=== PATIENT | female | born 1995 | race African-American/Black ===

== ENCOUNTER 2023-01-31 16:19 | Emergency (ER) | payer OTHER ==
[2023-01-31 17:35] LABS: Absolute Lymphocytes (CBC) 1.8 K/uL (0.7-4.9); Lymphocytes % 33.2 % (15.3-44.8); MCV 91.7 fL (80-100); MPV 8.1 fL (7.6-11.3); Platelets 239 thou/uL (152-406); RBC Red Blood Cell Count 4.48 M/uL (3.86-4.86)
[2023-01-31 17:37] LABS: Specific Gravity 1.025 (1.005-1.030)
[2023-01-31] MEDS ORDERED: LORazepam 2 MG/ML VIAL ONE (17:38)
[2023-01-31 17:41] LABS: Protime INR 1.06
[2023-01-31 17:45] LABS: Specific Gravity 1.025 (1.005-1.030); Urine Bacteria <20 /HPF (<20); Urine Bilirubin NEGATIVE (Negative); Urine Blood Negative (Negative); Urine Clarity Turbid (Clear); Urine Color Light-Yellow (Yellow); Urine Glucose NEGATIVE (Negative); Urine Mucus 1+ /HPF (None Seen); Urine Protein TRACE (Negative); Urine Urobilinogen Normal (Normal); Urine pH 6.5 (5.0-7.0)
[2023-01-31 17:48] LABS: Barbiturates NEGATIVE (NEGATIVE); Benzodiazepines NEGATIVE (NEGATIVE); Cocaine NEGATIVE (NEGATIVE); METHAMPHETAM NEGATIVE (NEGATIVE); Methadone ND (NEGATIVE); Opiates NEGATIVE (NEGATIVE); Phencyclidine NEGATIVE (NEGATIVE); THC Cannibis POSITIVE (NEGATIVE)
[2023-01-31 18:21] LABS: ALT/SGPT 18 U/L (13-56); AST/SGOT 16 U/L (15-37); Albumin 4.4 g/dL (3.4-5.0); Alkaline Phosphatase 62 U/L (45-117); BUN Blood Urea Nitrogen 10 mg/dL (7-18); Bicarbonate 26 mEq/L (21-32); Bilirubin Direct 0.1 mg/dL (0-0.2); Bilirubin Indirect, Calculated 0.3 mg/dL (0.2-0.8); Bilirubin Total 0.4 mg/dL (0.2-1.0); Glomerular Filtration Rate 82 ml/min (=/>90); Glucose Level 100 mg/dL (74-106); Potassium 3.6 mEq/L (3.5-5.1); Sodium Level 136 mEq/L (136-145)
--- NOTE | 2023-01-31 18:46 | ER ---
Nurse's Notes [facility] Name: Mirta Bravo Age: 27 yrs Sex: Female : 1995 Arrival Date: 01/31/2023 Time: 16:19 Bed 20 Private MD: Diagnosis: Suicidal ideations Presentation: 01/31 16:41 Chief complaint: PATIENT CAME WITH POLICE. CALLED SUICIDE HOTLINE AND STATED THAT db SHE WANTED TO EITHER OVERDOSE OR THROW HERSELF INTO TRAFFIC. PT STATES HAS HAD THOUGHTS OF HURTING SELF FOR A COUPLE OF WEEKS. STATES HAS HORRIBLE NIGHTMARES NIGHTLY. DENIES HALLUCINATIONS OR HEARING VOICES. Coronavirus screen: Vaccine status: Patient reports receiving the 2nd dose of the covid vaccine. Client denies travel out of the [place] in the last 14 days. At this time, the client does not indicate any symptoms associated with coronavirus-19. Ebola Screen: Patient negative for fever greater than or equal to 101.5 degrees Fahrenheit, and additional compatible Ebola Virus Disease symptoms Patient denies exposure to infectious person. Patient denies travel to an Ebola-affected area in the 21 days before illness onset. No symptoms or risks identified at this time. Initial Sepsis Screen: Does the patient meet any 2 criteria? No. Patient's initial sepsis screen is negative. Does the patient have a suspected source of infection? No. Patient's initial sepsis screen is negative. Risk Assessment: Do you want to hurt yourself or someone else? Patient reports desire/thoughts of hurting themselves or someone else. Provider notified. Onset of symptoms was January 31, 2023. 16:41 Method Of Arrival: Law Enforcement: [place] [employer] db 16:41 Acuity: MARGARITA 2 db Triage Assessment: 16:57 General: Appears in no apparent distress. comfortable, Behavior is. Pain: Denies pain. db Neuro: Level of Consciousness is awake, alert, obeys commands, Oriented to person, place, time, situation. Historical: - Allergies: 16:57 No Known Allergies; db - Home Meds: 16:57 Wellbutrin XL 300 mg Oral Tablet, Extended Release 24 hr [Active]; Bupropion 60 Oral db [Active]; Seroquel 60 MG Oral [Active]; - PMHx: 18:53 Depressive disorder; db - Social history:: Smoking status: Reported history of juuling and/or vaping. Patient uses. Screenin:00 [facility] ED Fall Risk Assessment (Adult) History of falling in the last 3 months, db including since admission No falls in past 3 months (0 pts) Score/Fall Risk Level 0 - 2 = Low Risk Oriented to surroundings, Maintained a safe environment. Abuse screen: Denies threats or abuse. Denies injuries from another. Nutritional screening: No deficits noted. Tuberculosis screening: No symptoms or risk factors identified. Assessment: 17:28 Reassessment: PATIENT BEGAN YELLING AND BANGING HER HEAD AGAINST THE STRETCHER. CODE kristen SHARMILA CALLED. 17:31 Reassessment: No changes from previously documented assessment. Patient and/or family ll1 updated on plan of care and expected duration. Pain level reassessed. 18:51 Reassessment: REPORT GIVEN TO WAQAS AT [facility]. [facility]. db 19:14 General: Appears in no apparent distress. Behavior is flat, quiet. Neuro: No deficits kl noted. Cardiovascular: No deficits noted. Respiratory: Airway is patent Trachea midline Respiratory effort is even, unlabored, Respiratory pattern is regular, symmetrical. GI: No deficits noted. No signs and/or symptoms were reported involving the gastrointestinal system. : No deficits noted. No signs and/or symptoms were reported regarding the genitourinary system. Psych: 16:20 [place] Suicide Severity Screening: In the past month, have you wished you were db or wished you could go to sleep and not wake up? Patient responds "yes." "In the past month, have you actually had any thoughts of killing yourself?" Patient responds "yes." "In your lifetime, have you ever done anything, started to do anything, or prepared to do anything to end your life?" Patient responds "yes." Patient reports suicidal intent within 3 past months. Subjective: Patient's mood is sad, hopeless, Delusions are denied, Hallucinations are denied Having thoughts of suicide. Plan for suicide is PLAN TO OVERDOSE OR THROW SELF INTO TRAFFIC. Objective: Patient is cooperative, Speech is normal, Affect is flat. Interventions: Removed personal items and placed in bag. Patient placed in hospital gown. Searched person for dangerous items. Belonging list filled out. Patient reassessed during use of restraints. Patient is physically safe. Safety Checks: Personal items have been removed. Door is open. No visitors are present at this time. [place] [employer] AT PATIENT BEDSIDE. Patient uses tobacco Frequency daily. Pt denies substance abuse. Commitment: Patient will be an involuntary commitment. Commitment papers completed. Vital Signs: 16:41 BP 127 / 86; Pulse 71; Resp 16; Temp 98; Pulse Ox 100% on R/A; Weight 53.52 kg; Height db 5 ft. 4 in. ; 19:15 BP 115 / 67; Pulse 81; Resp 18; Temp 98.5(O); Pulse Ox 99% ; kl 16:41 Body Mass Index 20.25 (53.52 kg, 162.56 cm) db ED Course: 16:20 Patient arrived in ED. ll1 16:21 Octaviano Maciel PA is PHCP. cp 16:21 Octaviano Patel MD is Attending Physician. cp 16:30 Arm band placed on Patient placed in an exam room, on a stretcher. ll1 16:41 Shandra Silva, RN is Primary Nurse. db 16:56 Triage completed. db 17:31 Acetaminophen Sent. bc6 17:31 Basic Metabolic Panel Sent. bc6 17:31 CBC with Diff Sent. bc6 17:31 ETOH Level Sent. bc6 17:31 Hepatic Function Sent. bc6 17:31 PT-INR Sent. bc6 17:31 Test, Urine Sent. bc6 17:31 Ptt, Activated Sent. bc6 17:31 Salicylate Sent. bc6 17:31 Urinalysis w/ reflexes Sent. bc6 17:31 Urine Drug Screen Sent. bc6 17:31 Inserted saline lock: 20 gauge in left antecubital area, using aseptic technique. Blood bc6 collected. 18:35 faxed chart to [facility]. bd 19:[address] Collazo to [facility]. rv1 19:56 No apparent distress. Resting quietly. kl 19:57 Patient has correct armband on for positive identification. Bed in low position. sitter kl in attendance. Provided Education on: PING. 19:57 No provider procedures requiring assistance completed. IV discontinued, intact, kl bleeding controlled, No redness/swelling at site. Pressure dressing applied. Administered Medications: 17:28 Drug: Ativan IVP 1 mg IVP once Route: IVP; Site: left forearm; ll1 19:17 Follow up: Response: No adverse reaction db Medication: 19:57 VIS not applicable for this client. Outcome: 18:46 ER care complete, transfer ordered by . cp 19:56 Transferred by ground EMS Note: [facility] 19:56 Condition: stable 19:56 Discharge instructions given to patient, Instructed on the need for transfer, Demonstrated understanding of instructions, 20:15 Patient left the ED. Signatures: Jasmin Ochoa Kimberly RN RN Octaviano Sprague PA PA cp Lewis, Lynsay RN RN ll1 Shandra Silva RN RN db Becky Ferro rv1 Antonietta Hoskins bc6 Corrections: (The following items were deleted from the chart) 16:57 16:41 Chief complaint: PATIENT CAME WITH POLICE. CALLED SUICIDE HOTLINE AND STATED db THAT SHE WANTED TO EITHER OVERDOSE OR THROW HERSELF INTO TRAFFIC. db 18:55 18:51 Reassessment: REPORT GIVEN TO WAQAS AT [facility]. db db
--- NOTE | 2023-01-31 18:46 | EDPHYS ---
Physician Documentation [facility] Name: Mirta Braov Age: 27 yrs Sex: Female : 1995 Arrival Date: 01/31/2023 Time: 16:19 Bed 20 Private MD: ED Physician Octaviano Patel HPI: 01/31 17:05 This 27 yrs old Black Female presents to ER via Law Enforcement with complaints of cp Suicidal Ideation. 17:05 The patient presents to the emergency department with depression, suicide ideation, and cp the patient has a plan, to overdose with medications. 17:05 Onset: The symptoms/episode began/occurred for past "couple weeks". cp 17:05 Associated signs and symptoms: Pertinent negatives: abdominal pain, chest pain, cp delusions, fever, hallucinations, homicidal ideation. Patient reports she has been off prescribed psych medications for about 1 month. Patient detained by law enforcement with PING. Historical: - Allergies: 16:57 No Known Allergies; db - Home Meds: 16:57 Wellbutrin XL 300 mg Oral Tablet, Extended Release 24 hr [Active]; Bupropion 60 Oral db [Active]; Seroquel 60 MG Oral [Active]; - PMHx: 18:53 Depressive disorder; db - Social history:: Smoking status: Reported history of juuling and/or vaping. Patient uses. ROS: 17:10 Constitutional: Negative for body aches, chills, fever, poor PO intake, cp 17:10 Eyes: Negative for injury, pain, redness, and discharge, cp 17:10 Cardiovascular: Negative for chest pain, palpitations, 17:10 Respiratory: Negative for cough, shortness of breath, wheezing, 17:10 Abdomen/GI: Negative for abdominal pain, vomiting, diarrhea, constipation, 17:10 Neuro: Negative for altered mental status, dizziness, headache, numbness, syncope, weakness, 17:10 Psych: Positive for depression, suicidal ideation, Negative for auditory hallucinations, visual hallucinations, homicidal ideation, 17:10 All other systems are negative, Exam: 17:15 Constitutional: The patient appears in no acute distress, alert, awake, non-toxic, well cp developed, well nourished, 17:15 Head/Face: Normocephalic, atraumatic. cp 17:15 Eyes: Periorbital structures: appear normal, Conjunctiva: normal, no exudate, no injection, Sclera: no appreciated abnormality, Lids and lashes: appear normal, bilaterally, 17:15 ENT: External ear(s): are unremarkable, Nose: is normal, Mouth: Lips: moist, Oral mucosa: pink and intact, moist, Posterior pharynx: Airway: no evidence of obstruction, patent, 17:15 Chest/axilla: Inspection: normal, 17:15 Cardiovascular: Rate: normal, Rhythm: regular, 17:15 Respiratory: the patient does not display signs of respiratory distress, Respirations: normal, no use of accessory muscles, no retractions, labored breathing, is not present, Breath sounds: are clear throughout, no decreased breath sounds, no stridor, no wheezing, 17:15 Abdomen/GI: Inspection: abdomen appears normal, 17:15 Neuro: Orientation: to person, place \\T\\ time. Mentation: is normal, Motor: moves all fours, strength is normal, Sensation: is normal, Gait: is steady, at a normal pace, without difficulty, Vital Signs: 16:41 BP 127 / 86; Pulse 71; Resp 16; Temp 98; Pulse Ox 100% on R/A; Weight 53.52 kg; Height db 5 ft. 4 in. ; 19:15 BP 115 / 67; Pulse 81; Resp 18; Temp 98.5(O); Pulse Ox 99% ; kl 16:41 Body Mass Index 20.25 (53.52 kg, 162.56 cm) db MDM: 16:21 Patient medically screened. cp 18:35 Data reviewed: vital signs, nurses notes, lab test result(s). cp 18:35 Differential diagnosis: drug withdrawal. acute psychotic break, depression, psychosis cp secondary to non-compliance. I considered the following discharge prescriptions or medication management in the emergency department Medications were administered in the Emergency Department. See MAR. Counseling: I had a detailed discussion with the patient and/or guardian regarding the historical points, exam findings, and any diagnostic results supporting the discharge/admit diagnosis, lab results, the need to transfer to another facility, [facility] does not immediately have the required specialist. 01/31 17:01 Order name: Acetaminophen; Complete Time: 18:24 cp 01/31 18:24 Interpretation: Reviewed. 01/31 17:01 Order name: Basic Metabolic Panel; Complete Time: 18:24 cp 01/31 18:24 Interpretation: Normal except: GFR 82. cp 01/31 17:01 Order name: CBC with Diff; Complete Time: 18:24 cp 01/31 17:01 Order name: ETOH Level; Complete Time: 18:24 cp 01/31 18:25 Interpretation: Reviewed. cp 01/31 17:01 Order name: Hepatic Function; Complete Time: 18:24 cp 01/31 18:25 Interpretation: Normal except: TP 9.0; GLOB 4.6; A/G 1.0. cp 01/31 17: Order name: PT-INR; Complete Time: 18:24 cp 01/31 17:01 Order name: Test, Urine; Complete Time: 18:24 cp 01/31 17: Order name: Ptt, Activated; Complete Time: 18:24 cp 01/31 17:01 Order name: Salicylate; Complete Time: 18:24 cp 01/31 17:01 Order name: Urinalysis w/ reflexes; Complete Time: 18:24 cp 01/31 18:25 Interpretation: Normal except: UCLA Turbid; UPROT TRACE; URBC 5-10. cp 01/31 17:01 Order name: Urine Drug Screen; Complete Time: 18:24 cp 01/31 18:25 Interpretation: Normal except: THC POSITIVE. cp 01/31 17:01 Order name: IV Saline Lock; Complete Time: 17:31 cp 01/31 17:01 Order name: Labs collected and sent; Complete Time: 17:31 cp 01/31 17:01 Order name: Suicide Precautions; Complete Time: 17:31 cp 01/31 17:01 Order name: Suicide Screening ([place]); Complete Time: 17:31 cp Administered Medications: 17:28 Drug: Ativan IVP 1 mg IVP once Route: IVP; Site: left forearm; ll1 19:17 Follow up: Response: No adverse reaction db Disposition Summary: 01/31/23 18:46 Transfer Ordered Notes: Transfer Location: [facility] Facility cp Reason: Higher level of care cp Condition: Stable cp Problem: new cp Symptoms: have improved cp Accepting Physician: Doctor(01/31/23 20:15) kl Diagnosis - Suicidal ideations cp Forms: - Medication Reconciliation Form cp - SBAR form cp Signatures: Dispatcher [employer] Ninoska Salinas RN RN Octaviano Sprague PA PA cp Lewis, Lynsay, RN RN ll1 Shandra Silva RN RN db Corrections: (The following items were deleted from the chart) 20:00 18:46 Doctor kristie duarte 20:15 20:00 Doctor gerald duarte 02/01 00:23 10 17:05 Patient reports she has been off prescribed psych medications for about 1 cp month. cp
[2023-01-31 21:01] VITALS: BP 127/86; TEMP 98; O2SAT 100
== END 2023-01-31 20:15 ==
LOC: ER 16:19
DX: R45.851 Suicidal ideations (principal); F17.290 Nicotine dependence, other tobacco product, uncomplicated; F32.A Depression, unspecified
CPT/HCPCS: 36415; 80048; 80076; 80143; 80179; 80307; 81001; 81025; 82077; 85025; 85610; 85730; 96374; 99285

== ENCOUNTER → 2023-07-01 | Emergency (ER) | payer OTHER, SELFPAY ==
[~2023-07-01] MED LIST: LORazepam 2 MG/ML VIAL ONE
[2023-07-01 02:33] LABS: Absolute Eosinophils 0.2 K/uL (0-0.5); Absolute Lymphocytes (CBC) 1.6 K/uL (0.7-4.9); Absolute Monocytes 0.5 K/uL (0.1-1.3); Absolute Neutrophil 3.8 K/uL (1.8-8.0); Basophils % 0.8 % (0-1.3); Eosinophils % 2.9 % (0-4.4); Hematocrit 36.7 % (36.0-45.0); Hemoglobin 12.2 g/dL (12.0-15.0); Lymphocytes % 26.4 % (15.3-44.8); MCH 31.2 pg (27.0-35.0); MCHC 33.3 g/dL (32.0-36.0); MCV 93.5 fL (80-100); MPV 8.5 fL (7.6-11.3); Monocytes % 8.3 % (3.3-12.3); Neutrophils % 61.6 % (41.7-73.7); Platelets 234 thou/uL (152-406); RBC Red Blood Cell Count 3.93 M/uL (3.86-4.86); Red Cell Distribution Width 12.5 % (12.1-15.2)
--- NOTE | 2023-07-01 02:36 | EDPHYS ---
Physician Documentation [facility] Name: Mirta Bravo Age: 27 yrs Sex: Female : 1995 Arrival Date: 07/01/2023 Time: 01:51 Bed 17 Private MD: ED Physician Cooper Flaherty HPI: 06/30 02:11 This 27 yrs old Black Female presents to ER via Unassigned with complaints of suicidal rn ideations. 02:11 The patient presents to the emergency department with depression, suicide ideation. rn Onset: The symptoms/episode began/occurred at an unknown time. Associated signs and symptoms: Pertinent positives; suicide ideation, Pertinent negatives: abdominal pain, chest pain, fever, hallucinations, homicidal ideation. Severity of symptoms: At their worst the symptoms were moderate in the emergency department the symptoms are unchanged. The patient has experienced similar episodes in the past. The patient has not recently seen a physician. Patient reports suicidal ideation, was having thoughts of ingestion, ibuprofen, but denies ingestion. Has had multiple suicidal ideation episodes in the past. Has had multiple psychiatric admissions as well. Patient states ran out of her bipolar medication. Drinking tequila tonight. Called the hotline for help when she started having thoughts of harming herself. Denies overdose or attempt to harm herself tonight. Historical: - Allergies: 01:51 No Known Allergies; tm6 - Home Meds: 01:51 Wellbutrin XL 300 mg Oral Tablet daily [Active]; Seroquel 60 MG Oral every evening tm6 [Active]; Bupropion 60 Oral daily [Active]; - PMHx: 01:51 depressive disorder; Bipolar disorder; Anxiety; tm6 - PSHx: 01:51 None; tm6 - Immunization history:: Adult Immunizations up to date, Client reports receiving the 2nd dose of the Covid vaccine, Flu vaccine is up to date. - Social history:: Smoking status: Patient reports the use of cigarette tobacco products, cigars, Patient uses alcohol, occasionally. street drugs, marijuana. - Family history:: not pertinent. - Hospitalizations: : No recent hospitalization is reported. ROS: 02:11 Constitutional: Negative for fever, chills, and weight loss, Cardiovascular: Negative rn for chest pain, palpitations, and edema, Respiratory: Negative for shortness of breath, cough, wheezing, and pleuritic chest pain, Abdomen/GI: Negative for abdominal pain, nausea, vomiting, diarrhea, and constipation, MS/Extremity: Negative for injury and deformity, Skin: Negative for injury, rash, and discoloration, Neuro: Negative for headache, weakness, numbness, tingling, and seizure, Exam: 02:11 Constitutional: This is a well developed, well nourished patient who is awake, alert, rn crying and tearful Head/Face: Normocephalic, atraumatic. Cardiovascular: Regular rate and rhythm. No pulse deficits. Respiratory: No increased work of breathing, no retractions or nasal flaring. Neuro: Awake and alert, GCS 15, oriented to person, place, time, and situation. Ambulatory without assistance Vital Signs: 01:51 BP 125 / 86; Pulse 90; Resp 18; Temp 97.1(TE); Pulse Ox 100% on R/A; Weight 52.16 kg; tm6 Height 5 ft. 4 in. ; Pain 0/10; 06:17 BP 129 / 69; Pulse 104; Resp 17; Temp 98.5(O); Pulse Ox 98% on R/A; Pain 0/10; tm6 07:28 BP 126 / 64; Pulse 88; Resp 16; Temp 98.2; Pulse Ox 97% ; db 13:56 BP 140 / 70; Pulse 85; Resp 16; Temp 98.3; Pulse Ox 99% ; ds4 18:07 BP 134 / 64; Pulse 86; Resp 14; Temp 98.3; Pulse Ox 97% ; ds4 01:51 Body Mass Index 19.74 (52.16 kg, 162.56 cm) tm6 01:51 Pain Scale: Adult tm6 06:17 Pain Scale: Adult tm6 MDM: 01:56 Patient medically screened. rn 02:33 Differential diagnosis: depression, Suicidal ideation. Data reviewed: vital signs, rn nurses notes, and as a result, I will admit patient. Consideration of Admission/Observation Patient was admitted/placed on observation. Escalation of care including admission/observation considered. Counseling: I had a detailed discussion with the patient and/or guardian regarding the historical points, exam findings, and any diagnostic results supporting the discharge/admit diagnosis, the need for further work-up and treatment in the hospital, the need to transfer to another facility, [facility] does not immediately have the required specialist. 07:00 Transition of care: Care assumed from Trip Soriano MD. ms3 11:55 ED course: Patient reevaluated. Patient is alert and orient x 4, no apparent distress, ms3 nontoxic-appearing, laying in bed without complaints. 06/30 01:56 Order name: Acetaminophen; Complete Time: 03:16 rn 06/30 01:56 Order name: Basic Metabolic Panel; Complete Time: 03:16 rn 06/30 01:56 Order name: CBC with Diff; Complete Time: 03:16 rn 06/30 01:56 Order name: ETOH Level; Complete Time: 03:16 rn 06/30 01:56 Order name: Hepatic Function; Complete Time: 03:16 rn 06/30 01:56 Order name: PT-INR; Complete Time: 03:16 rn 06/30 01:56 Order name: Test, Urine; Complete Time: 03:42 rn 06/30 01:56 Order name: Ptt, Activated; Complete Time: 03:16 rn 06/30 01:56 Order name: Salicylate; Complete Time: 03:16 rn 06/30 01:56 Order name: Urinalysis w/ reflexes; Complete Time: 03:42 rn 06/30 01:56 Order name: Urine Drug Screen; Complete Time: 03:42 rn 06/30 06:04 Order name: SARS RAPID; Complete Time: 06:36 wm 06/30 01:56 Order name: EKG; Complete Time: 01:57 rn 06/30 01:56 Order name: EKG - Nurse/Tech; Complete Time: 03:44 rn 06/30 01:56 Order name: IV Saline Lock; Complete Time: 02:35 rn 06/30 01:56 Order name: Labs collected and sent; Complete Time: 02:35 rn 06/30 01:56 Order name: Suicide Precautions; Complete Time: 02:43 rn 06/30 01:56 Order name: Suicide Screening ([place]); Complete Time: 02:56 rn Administered Medications: 11:58 Drug: Ativan IVP 1 mg IVP once Route: IVP; Site: right hand; db 17:00 Follow up: Response: No adverse reaction db Disposition Summary: 07/01/23 02:35 Transfer Ordered Notes: Transfer Location: Psych Facility rn Reason: Higher level of care rn Condition: Stable rn Problem: an ongoing problem rn Symptoms: are unchanged rn Accepting Physician: (07/01/23 18:31) db Diagnosis - Suicidal ideations rn Forms: - Medication Reconciliation Form rn - SBAR form rn Signatures: Dispatcher [employer] EDTrip Hutchison MD MD rn Sims, Marcus, DO DO ms3 Shandra Silva, RN RN db Sammy Donaldson RN RN tm6 Corrections: (The following items were deleted from the chart) 18:31 02:35 Dr. villela db
[2023-07-01 02:59] LABS: ALT/SGPT 16 U/L (13-56); AST/SGOT 13 U/L (15-37); Albumin 3.4 g/dL (3.4-5.0); Albumin/Globulin Ratio 0.9 (1.1-1.8); Alkaline Phosphatase 53 U/L (45-117); Anion Gap 8.5 mEq/L (5.0-15.0); BUN Blood Urea Nitrogen 8 mg/dL (7-18); Bicarbonate 25 mEq/L (21-32); Bilirubin Direct < 0.1 mg/dL (0-0.2); Bilirubin Indirect, Calculated ND mg/dL (0.2-0.8); Bilirubin Total 0.1 mg/dL (0.2-1.0); Globulin 3.8 g/dL (2.3-3.5); Glomerular Filtration Rate 105 ml/min (=/>90); Glucose Level 108 mg/dL (74-106); Potassium 3.5 mEq/L (3.5-5.1); Protein, Total 7.2 g/dL (6.4-8.2); Sodium Level 139 mEq/L (136-145)
[2023-07-01 03:04] LABS: PT Prothrombin Time 11.8 SECONDS (9.5-12.5); PTT, Activated Partial Thromb 33.8 SECONDS (24.3-36.9); Protime INR 1.07
[2023-07-01 03:23] LABS: Barbiturates NEGATIVE (NEGATIVE); Benzodiazepines NEGATIVE (NEGATIVE); Cocaine NEGATIVE (NEGATIVE); METHAMPHETAM NEGATIVE (NEGATIVE); Methadone NEGATIVE (NEGATIVE); Opiates NEGATIVE (NEGATIVE); Phencyclidine NEGATIVE (NEGATIVE); THC Cannibis POSITIVE (NEGATIVE)
[2023-07-01 03:26] LABS: Specific Gravity < 1.005 (1.005-1.030)
[2023-07-01 03:38] LABS: Specific Gravity < 1.005 (1.005-1.030); Sqamous Epithelial <5 /HPF (None Seen); Urine Bacteria 20-50 /HPF (<20); Urine Bilirubin NEGATIVE (Negative); Urine Blood Negative (Negative); Urine Clarity Extremely Turbid (Clear); Urine Color Colorless (Yellow); Urine Culture Reflex Order NOT NEEDED; Urine Glucose NEGATIVE (Negative); Urine Ketones NEGATIVE (Negative); Urine Microscopic Reflex YN ORDER UMIC; Urine Nitrite NEGATIVE (Negative); Urine Protein NEGATIVE (Negative); Urine RBC None Seen /HPF (None Seen); Urine Urobilinogen Normal (Normal); Urine WBC <5 /HPF (<5)
[2023-07-01 06:35] LABS: SARS-CoV-2 Antigen CONTROL BLUE LINE VIS/BG OK; SARS-CoV-2 Antigen Rapid Res Negative (Negative)
--- NOTE | 2023-07-01 14:14 | EKG ---
Test Date: 2023-07-01 Test Time: 02:39:23 Speech Language Pathology Assistant: ALEX MEASUREMENT RESULTS: Intervals: Rate: 91 SC: 140 QRSD: 88 QT: 352 QTc: 432 [place]: P: 79 SC: 140 QRS: 99 T: 71 INTERPRETIVE STATEMENTS: Normal sinus rhythm Normal ECG No previous ECG available for comparison Electronically Signed On 07-01-23 14:13:18 CDT by Austin Dillard
--- NOTE | 2023-07-01 18:32 | ER ---
Nurse's Notes [facility] Name: Mirta Bravo Age: 27 yrs Sex: Female : 1995 Arrival Date: 07/01/2023 Time: 01:51 Bed 17 Private MD: Diagnosis: Suicidal ideations Presentation: 06/30 01:51 Chief complaint: Patient states: patient called suicide hotline and was brought in by [address] Patient stated she wanted to . Patient stated she had been drinking tequila and was thinking about "taking a bunch of advil." When asked what made her feel this way, patient stated "I have been used.". Coronavirus screen: Vaccine status: Patient reports receiving the 2nd dose of the covid vaccine. Ebola Screen: Patient negative for fever greater than or equal to 101.5 degrees Fahrenheit, and additional compatible Ebola Virus Disease symptoms Patient denies exposure to infectious person. Patient denies travel to an Ebola-affected area in the 21 days before illness onset. No symptoms or risks identified at this time. Initial Sepsis Screen: Does the patient meet any 2 criteria? No. Patient's initial sepsis screen is negative. Does the patient have a suspected source of infection? No. Patient's initial sepsis screen is negative. Risk Assessment: Do you want to hurt yourself or someone else? Patient reports desire/thoughts of hurting themselves or someone else. Provider notified. Onset of symptoms was June 30, 2023 at 23:45. 01:51 Method Of Arrival: Law Enforcement: [facility] tm6 01:51 Acuity: MARGARITA 2 tm6 Triage Assessment: 01:51 General: Appears distressed, Behavior is anxious, crying. Pain: Denies pain. EENT: No tm6 signs and/or symptoms were reported regarding the EENT system. Neuro: Level of Consciousness is awake, alert, obeys commands, Oriented to person, place, time, situation. Cardiovascular: Capillary refill < 3 seconds Patient's skin is warm and dry. Respiratory: Airway is patent Respiratory effort is even, unlabored, Respiratory pattern is regular, symmetrical. GI: No signs and/or symptoms were reported involving the gastrointestinal system. Abdomen is flat, non-distended. : No signs and/or symptoms were reported regarding the genitourinary system. Derm: No signs and/or symptoms reported regarding the dermatologic system. Musculoskeletal: No signs and/or symptoms reported regarding the musculoskeletal system. Historical: - Allergies: 01:51 No Known Allergies; tm6 - Home Meds: 01:51 Wellbutrin XL 300 mg Oral Tablet daily [Active]; Seroquel 60 MG Oral every evening tm6 [Active]; Bupropion 60 Oral daily [Active]; - PMHx: 01:51 depressive disorder; Bipolar disorder; Anxiety; tm6 - PSHx: 01:51 None; tm6 - Immunization history:: Adult Immunizations up to date, Client reports receiving the 2nd dose of the Covid vaccine, Flu vaccine is up to date. - Social history:: Smoking status: Patient reports the use of cigarette tobacco products, cigars, Patient uses alcohol, occasionally. street drugs, marijuana. - Family history:: not pertinent. - Hospitalizations: : No recent hospitalization is reported. Screenin:[facility] ED Fall Risk Assessment (Adult) History of falling in the last 3 months, tm6 including since admission No falls in past 3 months (0 pts) Confusion or Disorientation No (0 pts) Intoxicated or Sedated No (0 pts) Impaired Gait No (0 pts) Mobility Assist Device Used No (0 pt) Altered Elimination No (0 pt) Score/Fall Risk Level 0 - 2 = Low Risk Oriented to surroundings, Maintained a safe environment. Abuse screen: Denies threats or abuse. Denies injuries from another. Nutritional screening: No deficits noted. Tuberculosis screening: No symptoms or risk factors identified. Assessment: 02:51 Reassessment: Patient is alert, oriented x 3, equal unlabored respirations, skin tm6 warm/dry/pink. patient has eyes closed. 02:53 Reassessment: see triage assessment. tm6 03:49 Reassessment: patient has eyes closed. tm6 04:43 Reassessment: patient has eyes closed. tm6 05:36 Reassessment: patient has eyes closed. tm6 06:17 Reassessment: Patient appears in no apparent distress at this time. Patient is alert, tm6 oriented x 3, equal unlabored respirations, skin warm/dry/pink. patient was offered snack and/or beverage. Patient declined. 07:00 Reassessment: Patient appears in no apparent distress at this time. Patient and/or db family updated on plan of care and expected duration. Pain level reassessed. Patient is alert, oriented x 3, equal unlabored respirations, skin warm/dry/pink. 07:04 Reassessment: patient has eyes closed. tm6 08:04 Reassessment: Patient appears in no apparent distress at this time. Patient and/or db family updated on plan of care and expected duration. Pain level reassessed. Patient is alert, oriented x 3, equal unlabored respirations, skin warm/dry/pink. PT OFFERED FOOD TRAY AND DID NOT WANT IT AT THIS TIME. General: Appears in no apparent distress. comfortable, Behavior is calm, cooperative. Neuro: Level of Consciousness is awake, alert, obeys commands, Oriented to person, place, time, situation. Respiratory: Airway is patent Respiratory effort is even, unlabored, Respiratory pattern is regular, symmetrical. 10:16 Reassessment: Patient appears in no apparent distress at this time. Patient and/or db family updated on plan of care and expected duration. Pain level reassessed. Patient is alert, oriented x 3, equal unlabored respirations, skin warm/dry/pink. 11:00 Reassessment: Patient appears in no apparent distress at this time. Patient and/or db family updated on plan of care and expected duration. Pain level reassessed. Patient is alert, oriented x 3, equal unlabored respirations, skin warm/dry/pink. General: Behavior is agitated, anxious, restless, PACING. 11:22 Reassessment: Patient appears in no apparent distress at this time. Patient and/or db family updated on plan of care and expected duration. Pain level reassessed. Patient is alert, oriented x 3, equal unlabored respirations, skin warm/dry/pink. General: Appears in no apparent distress. Behavior is agitated, anxious, restless. 12:00 Reassessment: Patient appears in no apparent distress at this time. Patient and/or db family updated on plan of care and expected duration. Pain level reassessed. Patient is alert, oriented x 3, equal unlabored respirations, skin warm/dry/pink. 13:00 Reassessment: Patient appears in no apparent distress at this time. Patient and/or db family updated on plan of care and expected duration. Pain level reassessed. Patient is alert, oriented x 3, equal unlabored respirations, skin warm/dry/pink. 13:46 Reassessment: REPORT GIVEN TO KRISTINE WITH [facility]. db 13:49 Reassessment: Patient appears in no apparent distress at this time. Patient and/or db family updated on plan of care and expected duration. Pain level reassessed. Patient is alert, oriented x 3, equal unlabored respirations, skin warm/dry/pink. 14:00 Reassessment: Patient appears in no apparent distress at this time. Patient and/or db family updated on plan of care and expected duration. Pain level reassessed. Patient is alert, oriented x 3, equal unlabored respirations, skin warm/dry/pink. 15:00 Reassessment: Patient appears in no apparent distress at this time. Patient and/or db family updated on plan of care and expected duration. Pain level reassessed. TRANSFER PAPER SIGNED. 16:00 Reassessment: Patient appears in no apparent distress at this time. Patient and/or db family updated on plan of care and expected duration. Pain level reassessed. Respiratory: Airway is patent Respiratory effort is even, unlabored, Respiratory pattern is regular, symmetrical. 17:00 Reassessment: Patient appears in no apparent distress at this time. Patient and/or db family updated on plan of care and expected duration. Pain level reassessed. Patient is alert, oriented x 3, equal unlabored respirations, skin warm/dry/pink. 18:05 Reassessment: PATIENT OFFERED FOOD TRAY DID NOT EAT IT. db 18:05 Reassessment: Patient appears in no apparent distress at this time. Patient and/or db family updated on plan of care and expected duration. Pain level reassessed. 18:20 Reassessment: Patient appears in no apparent distress at this time. Patient and/or db family updated on plan of care and expected duration. Pain level reassessed. Patient is alert, oriented x 3, equal unlabored respirations, skin warm/dry/pink. [facility] AT PATIENT BEDSIDE FOR TRANSPORT. General: Appears in no apparent distress. comfortable, Behavior is calm, cooperative. Psych: 01:51 [place] Suicide Severity Screening: In the past month, have you wished you were tm6 or wished you could go to sleep and not wake up? Patient responds "yes." Based off the client's responses additional C-SSRS screening is required. "In the past month, have you actually had any thoughts of killing yourself?" Patient responds "yes." Based off the client's response additional [place] suicide severity screening questions to be further documented on paper forms. "In your lifetime, have you ever done anything, started to do anything, or prepared to do anything to end your life?" Patient responds "yes." Patient reports suicidal intent occurred greater than 3 months prior. Subjective: Patient's mood is sad, hopeless, Delusions are denied, Hallucinations are denied Having thoughts of suicide. Plan for suicide is "take a bunch of tylenol". Objective: Patient is uncooperative, using poor eye contact, Speech is normal, Affect is flat. Interventions: Removed personal items and placed in bag. Patient placed in hospital gown. Searched person for dangerous items. Urine collected and sent for urine drug test. Belonging list filled out. Safety Checks: Personal items have been removed. Door is open. No visitors are present at this time. Patient uses unknown amount of tequila Patient uses marijuana unknown amount and time. 07:00 [place] Suicide Severity Screening: In the past month, have you wished you were db or wished you could go to sleep and not wake up? Patient responds "yes." Based off the client's responses additional C-SSRS screening is required. "In the past month, have you actually had any thoughts of killing yourself?" Patient responds "yes." Based off the client's response additional [place] suicide severity screening questions to be further documented on paper forms. "In your lifetime, have you ever done anything, started to do anything, or prepared to do anything to end your life?" Patient responds "yes." Patient reports suicidal intent occurred greater than 3 months prior. Subjective: Patient's mood is sad, Delusions are denied, Hallucinations are denied Having thoughts of suicide. Plan for suicide is OVERDOSE ON TYLENOL. Objective: Patient is cooperative, Speech is normal, Affect is flat. Interventions: Removed personal items and placed in bag. Patient placed in hospital gown. Searched person for dangerous items. SEARCHED BY PREVIOUS SHIFT. ROOM IS SAFE. PATIENT REMAINS SAFE. Safety Checks: Personal items have been removed. Door is open. No visitors are present at this time. Patient uses marijuana. 07:00 Commitment: Patient will be an involuntary commitment. Commitment papers completed. Vital Signs: 01:51 BP 125 / 86; Pulse 90; Resp 18; Temp 97.1(TE); Pulse Ox 100% on R/A; Weight 52.16 kg; tm6 Height 5 ft. 4 in. ; Pain 0/10; 06:17 BP 129 / 69; Pulse 104; Resp 17; Temp 98.5(O); Pulse Ox 98% on R/A; Pain 0/10; tm6 07:28 BP 126 / 64; Pulse 88; Resp 16; Temp 98.2; Pulse Ox 97% ; db 13:56 BP 140 / 70; Pulse 85; Resp 16; Temp 98.3; Pulse Ox 99% ; ds4 18:07 BP 134 / 64; Pulse 86; Resp 14; Temp 98.3; Pulse Ox 97% ; ds4 01:51 Body Mass Index 19.74 (52.16 kg, 162.56 cm) tm6 01:51 Pain Scale: Adult tm6 06:17 Pain Scale: Adult tm6 ED Course: 01:51 Safety Checks: Personal items have been removed. The door is open or patient has been tm6 placed in a hallway bed/chair. Sitter present at this time. 01:51 Safety checks: Items removed: yes. Door open/sign placed on door: yes. Family/friend ty present: no. Sitter present: Yes. 01:51 Arm band placed on left wrist. tm6 01:51 Provided Education on: plan of care. Patient is placed in psych hold. Assisted with tm6 dressing. 01:52 Patient has correct armband on for positive identification. Placed in gown. Bed in low ty position. Lights dimmed. Warm blanket given. Diet: Patient given snack. Patient given juice. Sitter at bedside. 01:54 Patient arrived in ED. tm6 01:55 Trip Soriano MD is Attending Physician. rn 02:13 Sammy Donaldson RN is Primary Nurse. tm6 02:35 Initial lab(s) drawn, by ED staff, sent to lab. Urine collected: clean catch specimen, ty clear. Inserted saline lock: 22 gauge in right hand, using aseptic technique. Blood collected. 02:44 Acetaminophen Sent. tm6 02:44 Basic Metabolic Panel Sent. tm6 02:44 CBC with Diff Sent. tm6 02:44 ETOH Level Sent. tm6 02:44 Hepatic Function Sent. tm6 02:44 PT-INR Sent. tm6 02:44 Test, Urine Sent. tm6 02:44 Ptt, Activated Sent. tm6 02:44 Salicylate Sent. tm6 02:44 Urinalysis w/ reflexes Sent. tm6 02:44 Urine Drug Screen Sent. tm6 02:49 Triage completed. tm6 04:38 Faxed the following Psych Facilities: [facility], [facility], [facility], [facility], [place], [facility], [facility], [facility], [facility]. Awaiting acceptance. 06:04 [facility] called and requested a covid result and an exclusionary form. 06:16 SARS RAPID Sent. tm6 06:47 Faxed [facility] requested documents. wm 07:00 Patient is placed in psych hold. db 07:04 Report given to Shandra LOAIZA. tm6 07:54 Attending Physician role handed off by Trip Soriano MD ms3 07:54 Cooper Flaherty DO is Attending Physician. ms3 08:04 No apparent distress. Resting quietly. Appears to be sleeping. Safety Checks: Personal db items have been removed. The door is open or patient has been placed in a hallway bed/chair. Sitter present at this time. 08:04 transfer approval from receiving facility. db 08:04 No provider procedures requiring assistance completed. db 09:36 refaxed chart to [facility]. bd 11:00 Appears agitated. Pt. is pacing. Appears tearful. db 11:14 Appears tearful. USING PHONE. db 12:18 pt denied at [facility], no beds at this time, per Se[place]. bd 12:51 re faxed chart to [facility]. bd 15:27 pt accepted in transfer to [facility] by dr Fuchs. bd 18:05 No apparent distress. Resting quietly. Appears to be sleeping. db 18:20 IV discontinued, intact, bleeding controlled, No redness/swelling at site. db 18:20 Patient has correct armband on for positive identification. Side rails up X 1. Warm db blanket given. Administered Medications: 11:58 Drug: Ativan IVP 1 mg IVP once Route: IVP; Site: right hand; db 17:00 Follow up: Response: No adverse reaction db Medication: 03:03 VIS not applicable for this client. tm6 Outcome: 02:35 ER care complete, transfer ordered by . rn 18:20 Transferred TRANSFERRED VIA [facility] . Transfer form completed. db 18:20 Condition: stable 18:20 Instructed on the need for transfer, 18:31 Patient left the ED. db Signatures: Jasmin Ochoa Roman, MD MD rn Swanson, Donovan ds4 Cooper Flaherty DO DO ms3 Gi Pang Danielle, RN RN db Sammy Donaldson RN RN tm6 Hipolito Cam Corrections: (The following items were deleted from the chart) 13:49 07:28 BP 126 / 64; Pulse 88bpm; Resp 16bpm; Pulse Ox 97%; ds4 db
[2023-07-01 19:02] VITALS: BP 112/74; TEMP 98.4; O2SAT 100
== END ==
LOC: ER 01:51
DX: R45.851 Suicidal ideations (principal); F31.9 Bipolar disorder, unspecified; Z72.0 Tobacco use; Z11.52 Encounter for screening for COVID-19
CPT/HCPCS: 36415; 80048; 80076; 80143; 80179; 80307; 81001; 81025; 82077; 85025; 85610; 85730; 87811; 93005; 96374; 99285